=== PATIENT | male | born 1965 | race American Indian/Alaskan Native ===

== ENCOUNTER 2016-08-10 12:57 | Emergency (ER) | payer OTHER ==
[2016-08-10 12:58] VITALS: BMI 28.1
[2016-08-10] MEDS ORDERED: Naproxen 550 mg Tab PO ONE (14:00)
[2016-08-10] MEDS ORDERED: Naproxen 550 mg Tab PO STA (14:30)
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
[2016-08-10 15:31] VITALS: BP 143/81; PULSE 57; RESP 18; TEMP 97.7
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
[2016-08-26 23:51] VITALS: O2SAT 100
== END 2016-08-10 15:30 | disposition home or self-care (01) ==
LOC: C.ER 12:57
DX: T14.8 Other injury of unspecified body region (principal); V89.2XXA Person injured in unspecified motor-vehicle accident, traffic, initial encounter

== ENCOUNTER 2016-08-31 20:58 | Emergency (ER) | payer OTHER ==
[2016-08-31 20:58] VITALS: BMI 28.1
[2016-08-31 21:15] VITALS: BP 123/86; PULSE 88; RESP 18; TEMP 98.5; O2SAT 100
[2016-08-31] MEDS ORDERED: Naproxen 550 mg Tab PO STA (22:13)
[2016-08-31] MEDS ORDERED: Naproxen 550 mg Tab PO ONE (22:21)
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
== END 2016-08-31 22:51 | disposition home or self-care (01) ==
LOC: C.ER 20:58 → SUPCPDRO 20:58 → C.ER 22:51
DX: R07.89 Other chest pain (principal)